=== PATIENT | female | born 1975 | race Caucasian/White ===

== ENCOUNTER 2017-10-31 05:08 | Inpatient (IN) | payer BC, OTHER ==
[2017-10-31] MEDS ORDERED: Oxytocin in LR* 20 UNITS/1,000 ML BAG IVPB ONE (06:21)
[2017-10-31 06:41] LABS: ABS Basophils 0.1 10^3/ul (0-0.2); ABS Eosinophils 0.1 10^3/ul (0-0.6); ABS Lymphocytes 2.7 10^3/ul (1.0-4.8); ABS Monocytes 0.8 10^3/ul (0-0.8); ABS Neutrophils 10.9 10^3/ul (1.5-7.7); ABS Nucleated RBC 0 10^3/ul; Hematocrit 32 % (35-47); Hemoglobin 10.6 g/dl (12.0-16.0); Lymphocyte % 18.3 % (25-47); Mean Corpuscular HGB Conc 33 g/dl (31-36); Mean Corpuscular Hemoglobin 24 pg (27-31); Mean Corpuscular Volume 72 fL (80-97); Mean Platelet Volume 8.3 um3 (7.4-10.4); Nucleated Red Blood Cells % 0; Platelet Count 294 10^3/ul (150-450); Red Blood Count 4.51 10^6/ul (4.0-5.4); Red Cell Distribution Width 15 % (10.5-15); White Blood Count 14.5 10^3/ul (3.5-10.8)
[2017-10-31 06:44] LABS: EGFR Non-African American 111.3 (>60)
--- NOTE | 2017-10-31 07:01 | HP ---
General Information - General Information Maternal Age: 41 Grav: 1 Para: 0 SAB: 0 IEA: 0 Estimated Due Date: 10/23/17 Determined By: LMP Gestational Age in Weeks and Days: 41 Weeks and 1 Days Maternal Blood Type and Rh: B Positive - Results this Serology/RPR Result: Non-Reactive Rubella Result: Immune HBsAg Result: Negative HIV Result: Negative GBS Culture Result: Negative Exam Allergies/Adverse Reactions: Allergies No Known Allergies Allergy (Verified 05/26/16 21:26) Lab Values - Entire Visit: Laboratory Tests 10/31/17 10/31/17 10/31/17 05:39 05:39 05:39 WBC 14.5 H RBC 4.51 Hgb 10.6 L Hct 32 L MCV 72 L MCH 24 L MCHC 33 RDW 15 Plt Count 294 MPV 8.3 Neut % (Auto) 74.5 Lymph % (Auto) 18.3 L Carbon % (Auto) 5.7 Eos % (Auto) 1.0 Baso % (Auto) 0.5 Absolute Neuts (auto) 10.9 H Absolute Lymphs (auto) 2.7 Absolute Monos (auto) 0.8 Absolute Eos (auto) 0.1 Absolute Basos (auto) 0.1 Absolute Nucleated RBC 0 Nucleated RBC % 0 Sodium 136 L Potassium 3.8 Chloride 106 Carbon Dioxide 21 L Anion Gap 9 BUN 10 Creatinine 0.60 Est GFR ( Amer) 143.1 Est GFR (Non-Af Amer) 111.3 BUN/Creatinine Ratio 16.7 Glucose 92 Uric Acid 5.0 Calcium 8.6 Total Bilirubin 0.30 AST 16 ALT 8 Alkaline Phosphatase 150 H Total Protein 5.8 L Albumin 3.1 L Globulin 2.7 Albumin/Globulin Ratio 1.1 Blood Type B Positive - Measurements Pre- Weight: 140 lb
--- NOTE | 2017-10-31 07:02 | HP ---
General Information - General Information Maternal Age: 41 Grav: 1 Para: 0 SAB: 0 IEA: 0 Estimated Due Date: 10/23/17 Determined By: LMP Gestational Age in Weeks and Days: 41 Weeks and 1 Days Maternal Blood Type and Rh: B Positive - Results this Serology/RPR Result: Non-Reactive Rubella Result: Immune HBsAg Result: Negative HIV Result: Negative GBS Culture Result: Negative Past Medical History Delivery History: Hx C/Section Pertinent Past Medical History: See Records Pertinent Past Surgical History: See Records Past Surgical History Comment: Section 2016 Meniscus repair 2010 ACL repair 2004 Pertinent Family History: See Records - HTN, Stroke, COPD Review of Systems Constitutional: Uncomfortable CV Complaint: No Respiratory: Shortness of Breath: No Gastrointestinal: No Nausea/Vomiting, Normal Bowel Movement Genitourinary: No Dysuria, No Bleeding, No Leaking Fluid Musculoskeletal: No Complaint Neurological: No Headache, No Visual Changes Movement: Normal Exam Allergies/Adverse Reactions: Allergies No Known Allergies Allergy (Verified 05/26/16 21:26) Temp 99.0 BP 154/106 RR 20 Pulse 90-100 POx 100% RA Lab Values - Entire Visit: Laboratory Tests 10/31/17 10/31/17 10/31/17 05:39 05:39 05:39 WBC 14.5 H RBC 4.51 Hgb 10.6 L Hct 32 L MCV 72 L MCH 24 L MCHC 33 RDW 15 Plt Count 294 MPV 8.3 Neut % (Auto) 74.5 Lymph % (Auto) 18.3 L Zavala % (Auto) 5.7 Eos % (Auto) 1.0 Baso % (Auto) 0.5 Absolute Neuts (auto) 10.9 H Absolute Lymphs (auto) 2.7 Absolute Monos (auto) 0.8 Absolute Eos (auto) 0.1 Absolute Basos (auto) 0.1 Absolute Nucleated RBC 0 Nucleated RBC % 0 Sodium 136 L Potassium 3.8 Chloride 106 Carbon Dioxide 21 L Anion Gap 9 BUN 10 Creatinine 0.60 Est GFR ( Amer) 143.1 Est GFR (Non-Af Amer) 111.3 BUN/Creatinine Ratio 16.7 Glucose 92 Uric Acid 5.0 Calcium 8.6 Total Bilirubin 0.30 AST 16 ALT 8 Alkaline Phosphatase 150 H Total Protein 5.8 L Albumin 3.1 L Globulin 2.7 Albumin/Globulin Ratio 1.1 Blood Type B Positive - Measurements Height: 5 ft 7 in Weight: 192 lb Body Mass Index (BMI): 30.0 Pre- Weight: 160 lb - Exam Abdomen: No Upper Quadrant Pain Breast: Breast Exam Deferred CVA: No CVA Tenderness Heart: Normal Rhythm/Heart Sounds HEENT: No Significant Findings Lungs: Clear Bilaterally Rectal: Rectal Exam Deferred - Abdominal Exam Abdomen Exam: Non-Tender, Fundal Height Consistent with Dates - Ultrasound/Biophysical Profile Ultrasound Status: Not Done - Cat II tracing on exam resolved with resuscitation/lld Targeted Exam Findings See L&D Outpatient Visit Provider Note for Findings: N/A Cervical Exam: 7cm Effacement: 90% Station: 0 Presenting Part: Vertex Membrane Status: AROM Amniotic Fluid Evaluation: Clear - scant amount of fluid Bleeding/Discharge: None EFM Findings - External Monitor Findings Baseline Heart Rate: 150 External Monitor Findings: Variability Moderate Contractions: Regular, Strong Contraction Frequency: q3 -4 min Assessment/Plan - Obstetrical Risk Factors Obstetrical Risk Factors: Post-Dates, Gestational Hypertension, Previous C/ Section in Labor - Plan Plan: Active Labor, IV Hydration Plan Comment: Attempt - Date/Time of Admission Date of Admission: 10/31/17 Time of Admission: 06:40
[2017-10-31 07:38] LABS: Urine Appearance Cloudy; Urine Blood 3+ (Negative); Urine Color Yellow; Urine Ketones Negative (Negative); Urine Protein 2+(100 mg/dL) (Negative); Urine Urobilinogen Negative (Negative)
[2017-10-31] MEDS ORDERED: Labetalol IV* 5 MG/ML 20 ML VIAL IV PUSH ONE (08:13)
[2017-10-31] MEDS ORDERED: Labetalol IV* 5 MG/ML 20 ML VIAL ONE (08:15)
[2017-10-31] MEDS ORDERED: Magnesium Sulfate OB PREMIX* 40 GM/1,000 ML BAG ONE (08:50)
[2017-10-31] MEDS ORDERED: Lidocaine 2% PF * 5 ML VIAL ONE (09:13)
[2017-10-31] MEDS ORDERED: Succinylcholine* 20 MG/ML 10 ML VIAL ONE (09:13)
[2017-10-31] MEDS ORDERED: Propofol* 10 MG/ML 20 ML BTL IV PUSH ONE (09:13)
[2017-10-31] MEDS ORDERED: OXYTOCIN* 10 UNITS/ML 1 ML VIAL ONE (09:14)
[2017-10-31] MEDS ORDERED: fentaNYL* 50 MCG/ML 5 ML VIAL (250 MCG VIAL) ONE (09:20)
[2017-10-31] MEDS ORDERED: Midazolam* 1 MG/ML 5 ML VIAL (5 MG) ONE (09:20)
[2017-10-31] MEDS ORDERED: ceFOXitin 2 GM IVPREMIX* 2 GM/50 ML BAG IVPB ONE (10:00)
[2017-10-31] MEDS ORDERED: fentaNYL* 50 MCG/ML 2 ML VIAL (100 MCG VIAL) ONE (10:08)
[2017-10-31] MEDS ORDERED: Dibucaine 1% 28.35 GM TUBE PR PRN (10:30)
[2017-10-31] MEDS ORDERED: Zolpidem TAB* 5 MG PO PRN (10:30)
[2017-10-31] MEDS ORDERED: Glycerin ADULT SUPP PR PRN (10:30)
[2017-10-31] MEDS ORDERED: Witch Hazel PAD* JAR TOPICAL PRN (10:30)
[2017-10-31] MEDS ORDERED: oxyCODONE/Acetamin 5/325 MG* TAB PO PRN (10:30)
[2017-10-31] MEDS ORDERED: Ondansetron INJ* 2 MG/ML VIAL IV PRN (10:48)
[2017-10-31] MEDS ORDERED: Naloxone* 0.4 MG/ML 1 ML VIAL IV PRN (10:48)
[2017-10-31] MEDS ORDERED: fentaNYL* 50 MCG/ML 2 ML VIAL (100 MCG VIAL) IV PRN (10:48)
[2017-10-31] MEDS: Ibuprofen TAB* 600 MG PO PRN ×2 (14:08→22:19)
[2017-10-31] MEDS: oxyCODONE/Acetamin 5/325 MG* TAB PO PRN ×2 (14:08→18:33)
[2017-10-31] MEDS ORDERED: MAGNESIUM SULF IVPB ONE (14:23)
[2017-10-31] MEDS ORDERED: Magnesium Sulfate OB PREMIX* 40 GM/1,000 ML BAG IV SCH (15:00)
[2017-10-31] MEDS: Simethicone TAB* 80 MG TAB.CHEW PO SCH ×2 (18:32→22:19)
[2017-10-31] MEDS: Docusate CAP* 100 MG PO SCH (22:19)
--- NOTE | 2017-10-31 23:40 | OP ---
CC: Dr. Jayla Marcial, [facility] OPERATIVE REPORT: DATE OF OPERATION: 10/31/17 DATE OF : 79 SURGEON: Antonio Nino MD [employer] SURGEON: Dr. Jayla Marcial. ANESTHESIA: General anesthetic with endotracheal intubation. PRE-OP DIAGNOSES: Intrauterine at 41 weeks, prior section with a category III tracing. POST-OP DIAGNOSES: Intrauterine at 41 weeks, prior section with a category III tracing. OPERATIVE PROCEDURE: Repeat section. ESTIMATED BLOOD LOSS: 600 cc. SPECIMEN SENT TO PATHOLOGY: Cord blood. IV FLUIDS: She received 3 L of IV crystalloid fluid. URINE OUTPUT: 150 cc with concentrated urine. FINDINGS: Delivery of a viable male over thick meconium fluid with nuchal cord x2 with weight of 8 pounds 12 ounces with Apgars of 7 and 9 in a direct occiput posterior position. There was scant amniotic fluid. The uterus , adnexa, bowel, and bladder were within normal limits and there were no complications. DESCRIPTION OF PROCEDURE: The patient was taken to operating room where she was identified. She was placed on the operating table where she was placed in the supine position, prepped and draped in a normal sterile fashion. A general anesthetic with endotracheal intubation was obtained without difficulty. A Pfannenstiel skin incision was made with a knife and carried through to the underlying layer of fascia. The fascia was nicked in the midline and extended laterally with curved Hope scissors, grasped superiorly and inferiorly with Kym clamps and dissected off the rectus muscles sharply. The rectus muscle was in the midline bluntly. The peritoneum was identified, grasped with pickups, entered sharply with Metzenbaum scissors and extended laterally bluntly. A bladder blade was then inserted into the patient's abdomen. A low transverse uterine incision was made about 3 cm above the bladder reflection, extended laterally with bandage scissors. The 's head was then grasped and delivered atraumatically. The rest of the 's body was then delivered. The nuchal cord x2 was reduced. The cord was clamped and cut. The infant was handed off to awaiting practicing urologist. Cord bloods were obtained as well as cord sample for cord gas. The placenta was removed manually. The uterus was then exteriorized, cleared of all clot and debris using moist laparotomy sponges. The uterine incision was then closed using 0 Polysorb suture in a running locked fashion with a second imbricating layer of 0 Polysorb suture. At this point, the uterus was returned to the patient's abdomen. The gutters were then cleared of all clot and debris using moist laparotomy sponges. The uterine incision was noted to be hemostatic. All the sponges and instruments were removed from the patient's abdomen. The peritoneum was then closed using 3-0 Polysorb suture in a running fashion. The fascia was closed using 0 Polysorb suture in a running fashion and the skin was closed with a 4-0 Monocryl subcuticular stitch. The patient tolerated the procedure well. Sponge, lap, and needle counts were correct x2. She was then transferred to recovery room area in stable condition. [id number]/[facility] #: [id number] KENDALL
[2017-11-01] MEDS ORDERED: Ammonia Inhalant* 1 EA AMP ONE (04:24)
[2017-11-01] MEDS: Simethicone TAB* 80 MG TAB.CHEW PO SCH ×5 (07:11→20:23)
[2017-11-01] MEDS: Docusate CAP* 100 MG PO SCH ×4 (07:11→20:22)
[2017-11-01 07:34] LABS: ABS Basophils 0.1 10^3/ul (0-0.2); ABS Eosinophils 0.1 10^3/ul (0-0.6); ABS Monocytes 0.5 10^3/ul (0-0.8); ABS Neutrophils 10.1 10^3/ul (1.5-7.7); ABS Nucleated RBC 0 10^3/ul; Eosinophil % 0.6 % (0-6); Hematocrit 21 % (35-47); Hemoglobin 6.8 g/dl (12.0-16.0); Lymphocyte % 15.7 % (25-47); Mean Corpuscular HGB Conc 33 g/dl (31-36); Mean Corpuscular Hemoglobin 24 pg (27-31); Mean Corpuscular Volume 72 fL (80-97); Mean Platelet Volume 7.8 um3 (7.4-10.4); Nucleated Red Blood Cells % 0.1; Platelet Count 262 10^3/ul (150-450); Red Blood Count 2.88 10^6/ul (4.0-5.4); Red Cell Distribution Width 16 % (10.5-15); White Blood Count 12.8 10^3/ul (3.5-10.8)
[2017-11-01] MEDS: Ibuprofen TAB* 600 MG PO PRN ×3 (07:58→20:23)
[2017-11-01] MEDS: Ferrous Gluconate TAB* 324 MG TAB PO SCH ×2 (07:59→20:22)
[2017-11-01] MEDS: oxyCODONE/Acetamin 5/325 MG* TAB PO PRN ×2 (09:09→12:39)
[2017-11-02] MEDS: Ibuprofen TAB* 600 MG PO PRN (03:56)
[2017-11-02] MEDS: Docusate CAP* 100 MG PO SCH ×3 (08:11→21:06)
[2017-11-02] MEDS: Simethicone TAB* 80 MG TAB.CHEW PO SCH ×4 (08:12→21:50)
[2017-11-02] MEDS: Ferrous Gluconate TAB* 324 MG TAB PO SCH ×2 (08:12→21:06)
[2017-11-02 10:53] LABS: ABS Basophils 0.1 10^3/ul (0-0.2); ABS Eosinophils 0.1 10^3/ul (0-0.6); ABS Monocytes 0.6 10^3/ul (0-0.8); ABS Neutrophils 9.1 10^3/ul (1.5-7.7); ABS Nucleated RBC 0 10^3/ul; Eosinophil % 1.3 % (0-6); Hematocrit 22 % (35-47); Lymphocyte % 16.7 % (25-47); Mean Corpuscular HGB Conc 32 g/dl (31-36); Mean Corpuscular Hemoglobin 23 pg (27-31); Mean Corpuscular Volume 73 fL (80-97); Mean Platelet Volume 7.4 um3 (7.4-10.4); Nucleated Red Blood Cells % 0; Platelet Count 348 10^3/ul (150-450); Red Blood Count 3.02 10^6/ul (4.0-5.4); Red Cell Distribution Width 15 % (10.5-15); White Blood Count 11.9 10^3/ul (3.5-10.8)
[2017-11-02 11:22] LABS: EGFR Non-African American 93.2 (>60)
[2017-11-02] MEDS: Labetalol TAB* 200 MG PO SCH ×2 (12:33→21:06)
[2017-11-02] MEDS: Acetaminophen TAB* 325 MG PO PRN ×2 (13:46→21:06)
--- NOTE | 2017-11-02 17:53 | PTEDU ---
Patient Name: BRI CALVILLO BRI CALVILLO selected video: BBOB: Nurturing Your Gorgeous &Growing Baby by to vi ew on 11/02/2017 at 5:53:19 PM from [email or web address]
--- NOTE | 2017-11-03 01:37 | PTEDU ---
Patient Name: BRI CALVILLO BRI CALVILLO selected video: Follow Me Mum: The [employer] Successful to view on 08/2017 at 1:36:20 AM from [email or web address]
[2017-11-03] MEDS: Acetaminophen TAB* 325 MG PO PRN ×4 (04:59→18:23)
[2017-11-03] MEDS ORDERED: Labetalol TAB* 300 MG PO ONE (08:15)
[2017-11-03] MEDS: Docusate CAP* 100 MG PO SCH ×3 (09:01→20:48)
[2017-11-03] MEDS: Simethicone TAB* 80 MG TAB.CHEW PO SCH ×4 (09:02→20:48)
[2017-11-03] MEDS: Ferrous Gluconate TAB* 324 MG TAB PO SCH ×2 (09:02→20:48)
--- NOTE | 2017-11-03 15:17 | PTEDU ---
Patient Name: BRI CALVILLO BRI CALVILLO selected video: Follow Me Mum: The [facility] [employer] Successful to view on 08/2017 at 3:17:05 PM from [email or web address]
--- NOTE | 2017-11-03 15:37 | PTEDU ---
Patient Name: BRI CALVILLO BRI CALVILLO selected video: Follow Me Mum: The [facility] [employer] Success[employer] to view on 08/2017 at 3:36:57 PM from [email or web address]
[2017-11-03] MEDS ORDERED: Labetalol TAB* 200 MG PO ONE (18:00)
[2017-11-03] MEDS: Labetalol TAB* 200 MG PO SCH (20:48)
[2017-11-04] MEDS: Acetaminophen TAB* 325 MG PO PRN ×2 (00:28→08:51)
[2017-11-04] MEDS: Ferrous Gluconate TAB* 324 MG TAB PO SCH (08:51)
[2017-11-04] MEDS: Docusate CAP* 100 MG PO SCH (08:51)
[2017-11-04] MEDS: Simethicone TAB* 80 MG TAB.CHEW PO SCH (08:51)
[2017-11-04] MEDS: Labetalol TAB* 200 MG PO SCH (08:52)
[2017-11-04] MEDS ORDERED: NIFEdipine ER TAB* 30 MG PO SCH (11:00)
[2017-11-04 11:04] VITALS: BP 156/97
[2017-11-04] MEDS: Ibuprofen TAB* 600 MG PO PRN (11:12)
== END 2017-11-04 12:15 | disposition home or self-care (01) | DRG 540 ==
LOC: MCHOBOUT 05:08 → MCHOB 05:46
PROVIDERS: ADMIT Obstetrics & Gynecology; ATTEND Obstetrics & Gynecology
PROC: 10907ZC Drainage of Amniotic Fluid, Therapeutic from Products of Conception, Via Natural or Artificial Opening (ICD-10-PCS; 2017-10-31)
PROC: 4A1HXCZ Monitoring of Products of Conception, Cardiac Rate, External Approach (ICD-10-PCS; 2017-10-31)
PROC: 10D00Z1 Extraction of Products of Conception, Low, Open Approach (ICD-10-PCS; principal; 2017-10-31 09:17)
DX: O34.211 Maternal care for low transverse scar from previous cesarean delivery (principal); O48.0 Post-term pregnancy; O13.4 Gestational [pregnancy-induced] hypertension without significant proteinuria, complicating childbirth; O69.81X0 Labor and delivery complicated by cord around neck, without compression, not applicable or unspecified; O77.0 Labor and delivery complicated by meconium in amniotic fluid; O14.14 Severe pre-eclampsia complicating childbirth; O90.81 Anemia of the puerperium; O76 Abnormality in fetal heart rate and rhythm complicating labor and delivery; Z3A.41 41 weeks gestation of pregnancy; Z37.0 Single live birth; Z82.3 Family history of stroke; Z82.5 Family history of asthma and other chronic lower respiratory diseases; Z82.49 Family history of ischemic heart disease and other diseases of the circulatory system
CPT/HCPCS: 36415; 80053; 81003; 81015; 84550; 85025; 86850; 86900; 86901; 87086; 88307; A9270-GY; J0330; J0694; J2250; J2590; J2704; J3010

== ENCOUNTER 2018-11-01 08:58 | Emergency (ER) | payer BC, OTHER ==
--- NOTE | 2018-11-01 09:10 | ED ---
Lower Extremity - HPI Summary HPI Summary: Patient is a 42-year-old female who presents emergency department for ankle injury that occurred this morning. Patient states she stepped in a hole and left ankle twisted. Is able to ambulate with great pain. Tingling or weakness. Symptoms are mild in severity. No other injuries were sustained. Walking makes symptoms worse. Elevation makes symptoms better. - History of Current Complaint Chief Complaint: EDExtremityLower Stated Complaint: LEFT ANKLE INJURY PER PT Time Seen by Provider: 11/01/18 09:04 Hx Obtained From: Patient Pain Intensity: 6 - Allergies/Home Medications Allergies/Adverse Reactions: Allergies Allergy/AdvReac Type Severity Reaction Status Date / Time No Known Allergies Allergy Verified 11/01/18 08:59 Home Medications: Home Medications Ethynodiol D-Ethinyl Estradiol [Ethynodiol-Eth Estra 1Mg-35Mcg] 1 tab PO DAILY 11/01/18 [History Confirmed 11/01/18] Minocycline (NF) 1 cap PO DAILY 11/01/18 [History Confirmed 11/01/18] PMH/Surg Hx/FS Hx/Imm Hx Previously Healthy: Yes - Surgical History Surgery Procedure, Year, and Place: Bilateral knee surgeries Infectious Disease History: No Infectious Disease History: Denies: History Other Infectious Disease, Traveled Outside the [place] in Last 30 Days - Family History Known Family History: Positive: Non-Contributory - Social History Occupation: Employed Full-time Lives: With Family Alcohol Use: Rare Substance Use Type: Reports: None Smoking Status (MU): Never Smoked Tobacco Review of Systems Positive: Other - left ankle injury Skin: Negative Negative: Weakness, Paresthesia, Numbness All Other Systems Reviewed And Are Negative: Yes Physical Exam Triage Information Reviewed: Yes Vital Signs On Initial Exam: Initial Vitals Temp Pulse Resp BP Pulse Ox 98.2 F 78 15 139/95 100 11/01/18 08:59 11/01/18 08:59 11/01/18 08:59 11/01/18 08:59 11/01/18 08:59 Vital Signs Reviewed: Yes Appearance: Positive: Well-Appearing - Pt. sitting on bed in NAD. Skin: Positive: Warm, Dry Head/Face: Positive: Normal Head/Face Inspection Eyes: Positive: Normal, EOMI Musculoskeletal: Positive: Other - MIld edema and pain to left lateral malleolus. Mild pain over base of 5th metatarsal. Achilles tendon intact. No proximal tib/fib/knee pain. Good pedal pulse. No breaks in skin. Neurological: Positive: Normal, CN Intact II-III Psychiatric: Positive: Affect/Mood Appropriate Procedures - Splinting Left Lower Extremity Pre-Made Type: walking boot Pre-Proc Neuro Vasc Exam: normal Post-Proc Neuro Vasc Exam: normal Diagnostics - Vital Signs Vital Signs Temp Pulse Resp BP Pulse Ox 11/01/18 08:59 98.2 F 78 15 139/95 100 - Laboratory Lab Statement: Any lab studies that have been ordered have been reviewed, and results considered in the medical decision making process. Lower Extremity Course/Dx - Course Course Of Treatment: Patient presenting for isolated left ankle injury. X-ray shows avulsion fracture of distal fibula. Walking boot was placed. Patient states she has crutches at home if Needed. Advised to Ice and Elevate Intermittently. Tylenol or Motrin for Pain As Directed. To Schedule Close Follow-Up Appointment with Orthopedics. Patient Understands and Agrees with Plan. - Diagnoses Differential Diagnosis/HQI/PQRI: Positive: Fracture (Closed), Sprain, Strain Provider Diagnoses: Avulsion fracture of distal fibula Discharge - Sign-Out/Discharge Documenting (check all that apply): Patient Departure Patient Received Moderate/Deep Sedation with Procedure: No - Discharge Plan Condition: Good Disposition: HOME Patient Education Materials: Ankle Fracture (ED), Avulsion Fracture (ED) Referrals: Tristan Polk MD [Medical Doctor] - Additional Instructions: Schedule a follow up appointment with Dr. Polk, orthopedics Keep walking boot in place Ice and elevate Tylenol or Motrin for pain as directed Return to ER if symptoms change or worsen - Billing Disposition and Condition Condition: GOOD Disposition: Home
[2018-11-01] MEDS ORDERED: Ibuprofen TAB* 400 MG PO ONE (09:11)
[2018-11-01 10:50] VITALS: BP 140/88
== END 2018-11-01 10:30 | disposition home or self-care (01) ==
LOC: ED 08:58
DX: S82.832A Other fracture of upper and lower end of left fibula, initial encounter for closed fracture (principal); X50.1XXA Overexertion from prolonged static or awkward postures, initial encounter; Y92.9 Unspecified place or not applicable
CPT/HCPCS: 99282; A9270-GY